=== PATIENT | female | born 2000 | race Caucasian/White ===

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

== ENCOUNTER 2019-02-19 12:13 | Outpatient (REF) | payer BC, SELFPAY | END 2019-02-19 12:33 | LOC: LBN 12:13 | PROVIDERS: PCP Family Medicine; Visit Provider Nurse Practitioner Family | DX: R30.0 Dysuria (principal) | CPT/HCPCS: 87077; 87086; 87186 ==

== ENCOUNTER 2019-03-15 10:40 | Outpatient (REF) | payer BC, SELFPAY | END 2019-03-15 11:00 | LOC: LBN 10:40 | PROVIDERS: PCP Family Medicine; Visit Provider Nurse Practitioner Family | DX: R30.0 Dysuria (principal) | CPT/HCPCS: 87086 ==

== ENCOUNTER 2019-03-29 12:59 | Outpatient (REF) | payer BC, SELFPAY ==
[2019-04-01 14:26] LABS: Chlamydia Result Negative (Negative); GC Result Negative (Negative)
== END 2019-03-29 13:19 ==
LOC: LBN 12:59
PROVIDERS: PCP Family Medicine; Visit Provider Nurse Practitioner Family
DX: Z11.3 Encounter for screening for infections with a predominantly sexual mode of transmission (principal)
CPT/HCPCS: 87491; 87591